=== PATIENT | male | born 1970 ===

== ENCOUNTER → 2022-02-12 | Outpatient (REF) | LOC: M PLAIMG 13:24 | PROVIDERS: ATTEND Internal Medicine | DX: Z00.00 Encounter for general adult medical examination without abnormal findings (principal) ==

== ENCOUNTER → 2022-12-18 | Outpatient (REF) | LOC: M PLAIMG 13:35 | PROVIDERS: ATTEND Internal Medicine | DX: Z00.00 Encounter for general adult medical examination without abnormal findings (principal) ==